=== PATIENT | male | born 1980 | race Caucasian/White ===

== ENCOUNTER 2018-04-29 21:30 | Emergency (ER) | payer BC | END 2018-04-29 22:25 | disposition home or self-care (01) | LOC: SCSER 21:30 | DX: T63.2X1A Toxic effect of venom of scorpion, accidental (unintentional), initial encounter (principal); J45.909 Unspecified asthma, uncomplicated; F32.9 Major depressive disorder, single episode, unspecified; F17.200 Nicotine dependence, unspecified, uncomplicated; Z79.899 Other long term (current) drug therapy | CPT/HCPCS: 99282 ==